=== PATIENT | female | born 1990 ===

== ENCOUNTER 2017-08-31 04:33 | Emergency (ER) | payer OTHER ==
[2017-08-31 06:42] LABS: HCG Qualitative,Urine Negative (Negative)
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
[2017-08-31] MEDS ORDERED: MOTRIN PO ONE (09:43)
[2017-08-31] MEDS ORDERED: XYLOCAINE 2%/ EPI 1:200,000 INFILTRATI ONE (09:43)
[2017-08-31 10:07] LABS: Bacteria,Urine 1+ /HPF (Negative); Bilirubin,Urine NEG (Negative); Blood,Urine MOD (Negative); Color,Urine Yellow (Yellow); Mucus,Urine 1+ /HPF; Protein,Urine <15 mg/dL mg/dL (Negative); Urobilinogen,Urine < 2.0 mg/dL (<2.0)
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
[2017-08-31 10:59] LABS: Amphetamine Screen,Urine PRESUMPTIVE NEGATIVE; Benzodiazepines Screen,Urine PRESUMPTIVE NEGATIVE; Cannabinoid Screen,Urine PRESUMPTIVE NEGATIVE; Cocaine Screen,Urine PRESUMPTIVE NEGATIVE; Methadone Screen,Urine PRESUMPTIVE NEGATIVE; Opiate Screen,Urine PRESUMPTIVE NEGATIVE
[2017-08-31 11:40] VITALS: BP 132/76
== END 2017-08-31 11:04 ==
LOC: ED 04:33
DX: S81.012A Laceration without foreign body, left knee, initial encounter (principal); S00.03XA Contusion of scalp, initial encounter; S20.211A Contusion of right front wall of thorax, initial encounter; M19.90 Unspecified osteoarthritis, unspecified site; F17.200 Nicotine dependence, unspecified, uncomplicated; Z79.899 Other long term (current) drug therapy; V49.40XA Driver injured in collision with unspecified motor vehicles in traffic accident, initial encounter; Y93.89 Activity, other specified; Y99.8 Other external cause status; Y92.410 Unspecified street and highway as the place of occurrence of the external cause
CPT/HCPCS: 12001; 36415; 70450; 71101; 73562; 80307; 81001; 81025; 99284; G0480; 80320